=== PATIENT | male | born 1995 | race Hispanic/Latino ===

== ENCOUNTER 2019-03-16 20:33 | Emergency (ER) | payer SELFPAY ==
[2019-03-16 21:35] LABS: Absolute Lymphocytes (CBC) 1.6 K/uL (0.7-4.9); Absolute Monocytes 0.5 K/uL (0.1-1.3); Absolute Neutrophil 5.8 K/uL (1.8-8.0); Basophils % 0.5 % (0-1.3); Eosinophils % 0.9 % (0-4.4); Hematocrit 44.3 % (39.6-49.0); Lymphocytes % 19.5 % (15.3-44.8); MPV 11.7 fL (7.6-11.3); Monocytes % 6.6 % (3.3-12.3); RBC Red Blood Cell Count 5.22 M/uL (4.33-5.43)
[2019-03-16 22:01] LABS: Magnesium 2.2 mg/dL (1.8-2.4); Potassium 3.7 mmol/L (3.5-5.1); Thyroid Stimulating Hormone 0.874 uIU/mL (0.360-3.740)
--- NOTE | 2019-03-16 23:12 | ER ---
Nurse's Notes [facility] Name: Faraz Garay Age: 23 yrs Sex: Male : 1995 Arrival Date: 03/16/2019 Time: 20:34 Bed 25 Private MD: Yecenia Muñoz C Diagnosis: Malaise and fatigue Presentation: 03/16 20:59 Presenting complaint: Patient states: he was seen yesterday by Trent Muñoz given ak1 trazadone dx depression and GERD. pt c/o generalized weakness. pt with steady gait from ER lobby to ER25. pt stated he had a BM this morning but prior has had constipation X2 days. Transition of care: patient was not received from another setting of care. Onset of symptoms is unknown. Risk Assessment: Do you want to hurt yourself or someone else? Patient reports no desire to harm self or others. Initial Sepsis Screen: Does the patient meet any 2 criteria? No. Patient's initial sepsis screen is negative. Does the patient have a suspected source of infection? No. Patient's initial sepsis screen is negative. Care prior to arrival: None. 20:59 Method Of Arrival: Ambulatory ak1 20:59 Acuity: KOMAL 3 ak1 Historical: - Allergies: 21:03 No Known Allergies; ak1 - Home Meds: 21:03 trazodone 50 mg Oral tab 1 tab at bedtime [Active]; omeprazole Oral [Active]; ak1 - PMHx: 21:03 Anxiety; Depression; GERD; ak1 - PSHx: 21:03 Ankle surgery; ak1 - Immunization history:: Adult Immunizations up to date. - Social history:: Smoking status: Patient/guardian denies using tobacco, pt stated he stopped smoking yesterday. . - Ebola Screening: : No symptoms or risks identified at this time. Screenin:23 Abuse screen: Denies threats or abuse. Denies injuries from another. Nutritional mg2 screening: No deficits noted. Tuberculosis screening: No symptoms or risk factors identified. Fall Risk None identified. Assessment: 21:21 General: Appears in no apparent distress. comfortable, Behavior is calm, cooperative. mg2 Pain: Denies pain. Neuro: Level of Consciousness is awake, alert, obeys commands, Oriented to person, place, time, situation. Neuro: Reports weakness in whole body. Cardiovascular: Capillary refill < 3 seconds Patient's skin is warm and dry. Respiratory: Airway is patent Respiratory effort is even, unlabored, Respiratory pattern is regular, symmetrical. GI: Bowel sounds present X 4 quads. Abd is soft and non tender. : No signs and/or symptoms were reported regarding the genitourinary system. EENT: No signs and/or symptoms were reported regarding the EENT system. Derm: Skin is intact, is healthy with good turgor, Skin is pink, warm \T\ dry. normal. Musculoskeletal: Circulation, motion, and sensation intact. Capillary refill < 3 seconds. Musculoskeletal: Reports weakness in whole body. 23:30 Reassessment: Patient appears in no apparent distress at this time. Patient and/or mg2 family updated on plan of care and expected duration. Pain level reassessed. Patient is alert, oriented x 3, equal unlabored respirations, skin warm/dry/pink. Vital Signs: 20:59 BP 141 / 80; Pulse 77; Resp 16; Temp 98.1; Pulse Ox 99% on R/A; Weight 106.59 kg (R); ak1 Height 5 ft. 10 in. (177.80 cm) (R); Pain 0/10; 22:28 BP 108 / 63; Pulse 71; Resp 18; Temp 98; Pulse Ox 98% on R/A; Pain 0/10; mg2 23:37 BP 110 / 80; Pulse 70; Resp 18; Temp 98; Pulse Ox 100% on R/A; Pain 0/10; mg2 20:59 Body Mass Index 33.72 (106.59 kg, 177.80 cm) ak1 ED Course: 20:34 Patient arrived in ED. am2 20:34 Yecenia Muñoz FNP is Private Physician. am2 20:57 Niraj Jaimes, HEAVEN is Primary Nurse. mg2 20:59 Jose Burris PA is PHCP. jr8 20:59 Bernard Dunbar MD is Attending Physician. jr8 20:59 Arm band placed on Patient placed in an exam room, on a stretcher, on pulse oximetry, ak1 Patient notified of wait time. 21:01 Triage completed. ak1 21:23 Patient has correct armband on for positive identification. Door closed. Warm blanket mg2 given. 21:23 No provider procedures requiring assistance completed. mg2 21:33 Inserted saline lock: 20 gauge in left antecubital area, using aseptic technique. Blood mg2 collected. 23:34 IV discontinued, intact, bleeding controlled, No redness/swelling at site. Pressure mg2 dressing applied. Administered Medications: No medications were administered Outcome: 23:12 Discharge ordered by MD. hanley 23:38 Discharged to home ambulatory, with family. mg2 23:38 Condition: stable 23:38 Discharge instructions given to patient, family, Instructed on discharge instructions, follow up and referral plans. Demonstrated understanding of instructions, follow-up care. 23:38 Patient left the ED. mg2 Signatures: Jose Burris PA PA jr8 Audra Chua, RN RN ak1 Kriss Villalobos am2 Niraj Jaimes, RN RN mg2 Corrections: (The following items were deleted from the chart) 21:04 20:59 Presenting complaint: Patient states: he was seen yesterday by Trent Muñoz given ak1 pranazole and trazadone dx depression and GERD. pt c/o generalized weakness. pt with steady gait from ER lobby to ER25. pt stated he had a BM this morning but prior has had constipation X2 days. ak1
--- NOTE | 2019-03-16 23:12 | EDPHYS ---
Physician Documentation [facility] Name: Faraz Garay Age: 23 yrs Sex: Male : 1995 Arrival Date: 03/16/2019 Time: 20:34 Bed 25 Private MD: Yecenia Muñoz C ED Physician Bernard Dunbar HPI: 03/16 21:46 This 23 yrs old Male presents to ER via Ambulatory with complaints of General jr8 Weakness. 21:46 Patient stated that he was recently seen and put on Protonix for epigastric pain which jr8 is doing much better. Came to ED today for general weakness/fatigue. Denies any other symptoms . Severity of symptoms: At their worst the symptoms were moderate in the emergency department the symptoms are unchanged. The patient has not experienced similar symptoms in the past. The patient has been recently seen by a physician: with different complaint(s). Historical: - Allergies: 21:03 No Known Allergies; ak1 - Home Meds: 21:03 trazodone 50 mg Oral tab 1 tab at bedtime [Active]; omeprazole Oral [Active]; ak1 - PMHx: 21:03 Anxiety; Depression; GERD; ak1 - PSHx: 21:03 Ankle surgery; ak1 - Immunization history:: Adult Immunizations up to date. - Social history:: Smoking status: Patient/guardian denies using tobacco, pt stated he stopped smoking yesterday. . - Ebola Screening: : No symptoms or risks identified at this time. ROS: 21:46 Eyes: Negative for injury, pain, redness, and discharge, ENT: Negative for injury, jr8 pain, and discharge, Neck: Negative for injury, pain, and swelling, Cardiovascular: Negative for chest pain, palpitations, and edema, Respiratory: Negative for shortness of breath, cough, wheezing, and pleuritic chest pain, Abdomen/GI: Negative for abdominal pain, nausea, vomiting, diarrhea, and constipation, Back: Negative for injury and pain, MS/Extremity: Negative for injury and deformity, Skin: Negative for injury, rash, and discoloration, Neuro: Negative for headache, weakness, numbness, tingling, and seizure. 21:46 Constitutional: Positive for fatigue, malaise. Exam: 21:46 Constitutional: This is a well developed, well nourished patient who is awake, alert, jr8 and in no acute distress. Head/Face: Normocephalic, atraumatic. Eyes: Pupils equal round and reactive to light, extra-ocular motions intact. Lids and lashes normal. Conjunctiva and sclera are non-icteric and not injected. Cornea within normal limits. Periorbital areas with no swelling, redness, or edema. ENT: Nares patent. No nasal discharge, no septal abnormalities noted. Tympanic membranes are normal and external auditory canals are clear. Oropharynx with no redness, swelling, or masses, exudates, or evidence of obstruction, uvula midline. Mucous membranes moist. Neck: Trachea midline, no thyromegaly or masses palpated, and no cervical lymphadenopathy. Supple, full range of motion without nuchal rigidity, or vertebral point tenderness. No Meningismus. Cardiovascular: Regular rate and rhythm with a normal S1 and S2. No gallops, murmurs, or rubs. Normal PMI, no JVD. No pulse deficits. Respiratory: Lungs have equal breath sounds bilaterally, clear to auscultation and percussion. No rales, rhonchi or wheezes noted. No increased work of breathing, no retractions or nasal flaring. Abdomen/GI: Soft, non-tender, with normal bowel sounds. No distension or tympany. No guarding or rebound. No evidence of tenderness throughout. Back: No spinal tenderness. No costovertebral tenderness. Full range of motion. Skin: Warm, dry with normal turgor. Normal color with no rashes, no lesions, and no evidence of cellulitis. MS/ Extremity: Pulses equal, no cyanosis. Neurovascular intact. Full, normal range of motion. Neuro: Awake and alert, GCS 15, oriented to person, place, time, and situation. Cranial nerves II-XII grossly intact. Motor strength 5/5 in all extremities. Sensory grossly intact. Cerebellar exam normal. Normal gait. Vital Signs: 20:59 BP 141 / 80; Pulse 77; Resp 16; Temp 98.1; Pulse Ox 99% on R/A; Weight 106.59 kg (R); ak1 Height 5 ft. 10 in. (177.80 cm) (R); Pain 0/10; 22:28 BP 108 / 63; Pulse 71; Resp 18; Temp 98; Pulse Ox 98% on R/A; Pain 0/10; mg2 23:37 BP 110 / 80; Pulse 70; Resp 18; Temp 98; Pulse Ox 100% on R/A; Pain 0/10; mg2 20:59 Body Mass Index 33.72 (106.59 kg, 177.80 cm) ak1 MDM: 21:03 Patient medically screened. [facility] 23:11 Data reviewed: vital signs, nurses notes, lab test result(s), and as a result, I will jr8 discharge patient. Data interpreted: Pulse oximetry: on room air is 98 %. Interpretation: normal. Counseling: I had a detailed discussion with the patient and/or guardian regarding: the historical points, exam findings, and any diagnostic results supporting the discharge/admit diagnosis, lab results, the need for outpatient follow up, a family practitioner, to return to the emergency department if symptoms worsen or persist or if there are any questions or concerns that arise at home. 03/16 21:22 Order name: CBC with Diff; Complete Time: 21:39 [email or web address] 03/16 21: Order name: Basic Metabolic Panel; Complete Time: 22:03 8 03/16 21: Order name: TSH; Complete Time: 22:03 jr8 03/16 21: Order name: IV; Complete Time: 21:33 jr8 03/16 21: Order name: Magnesium; Complete Time: 22:03 [facility] [[email or web address] Administered Medications: No medications were administered Disposition: 03/17 06:41 Co-signature as Attending Physician, Bernard Dunbar MD I agree with the assessment and [facility] plan of care. Disposition: 03/16/19 23:12 Discharged to Home. Impression: Malaise and fatigue. - Condition is Stable. - Discharge Instructions: Fatigue. - Medication Reconciliation Form, Thank You Letter, Antibiotic Education, Prescription Opioid Use form. - Follow up: Private Physician; When: 2 - 3 days; Reason: Recheck today's complaints, Continuance of care, Re-evaluation by your physician. - Problem is new. - Symptoms have improved. Signatures: Dispatcher [employer] Bernard Duarte MD MD cha Roszak, Josh, PA PA jr8 Adura Chua RN RN ak1 Niraj Jaimes RN RN mg2 Corrections: (The following items were deleted from the chart) 03/16 23:38 23:12 03/16/2019 23:12 Discharged to Home. Impression: Malaise and fatigue. Condition mg2 is Stable. Forms are Medication Reconciliation Form, Thank You Letter, Antibiotic Education, Prescription Opioid Use. Follow up: Private Physician; When: 2 - 3 days; Reason: Recheck today's complaints, Continuance of care, Re-evaluation by your physician. Problem is new. Symptoms have improved. jr8
== END 2019-03-16 23:38 | disposition home or self-care (01) ==
LOC: ER 20:33
DX: R53.81 Other malaise (principal); R53.83 Other fatigue; K21.9 Gastro-esophageal reflux disease without esophagitis; F41.8 Other specified anxiety disorders
CPT/HCPCS: 36415; 80048; 83735; 84443; 85025; 99284

== ENCOUNTER 2019-09-12 23:32 | Emergency (ER) | payer SELFPAY ==
[2019-09-12] MEDS ORDERED: MAGNE/ALUM HYDROXD 30 ML UCUP ONE (23:53)
[2019-09-12] MEDS ORDERED: LIDOCAINE VISCOUS 2% SOLN 15 ML UDC ONE (23:54)
--- NOTE | 2019-09-13 00:28 | ER ---
Nurse's Notes [facility] Name: Faraz Garay Age: 24 yrs Sex: Male : 1995 Arrival Date: 09/12/2019 Time: 23:36 Bed 16 Private MD: Diagnosis: Gastro-esophageal reflux disease;Chest pain, unspecified;Anxiety disorder, unspecified Presentation: 09/12 23:44 Presenting complaint: Patient states: burning sensation in chest that began this ss morning after eating. Pt states, "I don't think it's anything, but because of my anxiety, I need to get it checked out.". Transition of care: patient was not received from another setting of care. Onset of symptoms was September 12, 2019. Risk Assessment: Do you want to hurt yourself or someone else? Patient reports no desire to harm self or others. Initial Sepsis Screen: Does the patient meet any 2 criteria? No. Patient's initial sepsis screen is negative. Does the patient have a suspected source of infection? No. Patient's initial sepsis screen is negative. Care prior to arrival: None. 23:44 Method Of Arrival: Ambulatory ss 23:44 Acuity: KOMAL 3 ss Triage Assessment: 09/13 00:03 General: Appears. ch2 Historical: - Allergies: 09/12 23:46 No Known Allergies; ss - PMHx: 23:46 Anxiety; Depression; GERD; ss - PSHx: 23:46 Ankle surgery; ss - Immunization history:: Adult Immunizations up to date. - Social history:: Smoking status: Patient uses tobacco products, smokes one-half pack cigarettes per day. - Ebola Screening: : Patient denies exposure to infectious person Patient denies travel to an Ebola-affected area in the 21 days before illness onset. - Family history:: not pertinent. - Hospitalizations: : No recent hospitalization is reported. Screenin/18 00:02 Abuse screen: Denies threats or abuse. Denies injuries from another. Nutritional ch2 screening: No deficits noted. Tuberculosis screening: No symptoms or risk factors identified. Fall Risk None identified. Assessment: 00:04 General: Appears in no apparent distress. uncomfortable, Behavior is calm, cooperative, ch2 appropriate for age. Pain: Complains of pain in epigastric area Pain radiates to chest Pain currently is 5 out of 10 on a pain scale. Quality of pain is described as burning, Pain began 3 hours ago. Is. Neuro: Level of Consciousness is awake, alert, obeys commands, Oriented to person, place, time, situation, Appropriate for age. Cardiovascular: Reports chest pain, Capillary refill < 3 seconds Rhythm is regular Chest pain. Respiratory: Respiratory effort is even, unlabored. Respiratory: Airway is patent Respiratory effort is Respiratory pattern is regular, symmetrical. GI: Reports epigastric pain. : No deficits noted. Reports. EENT: EENT: Eyes Sclera/Cornea are clear in inner aspect of conjuctiva of right eye and inner aspect of conjunctiva of left eye. Derm: Skin is pink, warm \\T\\ dry. normal. Musculoskeletal: Circulation, motion, and sensation intact. Vital Signs: 09/12 23:43 BP 131 / 68; Pulse 69; Resp 16; Pulse Ox 100% on R/A; Weight 104.33 kg; Height 5 ft. 9 ss in. (175.26 cm); Pain 4/10; 09/13 00:13 BP 128 / 74; Pulse 63; Temp 98.3; Pulse Ox 100% ; ch2 09/12 23:43 Body Mass Index 33.96 (104.33 kg, 175.26 cm) ss ED Course: 09/12 23:36 Patient arrived in ED. ds1 23:39 Jagdish Mehta MD is Attending Physician. rn 23:43 Arm band placed on right wrist. ss 23:45 Triage completed. 09/13 00:15 Bed in low position. Call light in reach. Adult w/ patient. interrelated special education teacher on. Pulse ch2 ox on. NIBP on. 00:15 Patient maintains SpO2 saturation greater than 95% on room air. ch2 00:39 No provider procedures requiring assistance completed. Patient did not have IV access ch2 during this emergency room visit. 06:15 XRAY Chest (1 view) In Process Unspecified. EDMS Administered Medications: 00:01 Drug: GI Cocktail without - (Maalox Suspension 30 ml, Lidocaine Liquid 2 % 15 ch2 ml) Route: PO; 00:39 Follow up: Response: No adverse reaction; Marked relief of symptoms; Pain is decreased ch2 Outcome: 00:27 Discharge ordered by MD. rn 00:40 Discharged to home ambulatory, with family. ch2 00:40 Condition: stable 00:40 Discharge instructions given to patient, family, Instructed on discharge instructions, follow up and referral plans. 00:43 Patient left the ED. ch2 Signatures: Dispatcher [employer] EDMS SinghSamantha goodman ds1 Jagdish Mehta MD MD rn Smirch, Shelby, RN RN Silvana Grey RN RN ch2
--- NOTE | 2019-09-13 00:29 | EDPHYS ---
Physician Documentation [facility] Name: Faraz Garay Age: 24 yrs Sex: Male : 1995 Arrival Date: 09/12/2019 Time: 23:36 Bed 16 Private MD: ED Physician Jagdish Mehta HPI: 09/12 23:50 This 24 yrs old Male presents to ER via Ambulatory with complaints of Anxiety, rn Chest Pain. 23:50 The patient or guardian reports chest pain that is located primarily in the substernal rn area. The pain does not radiate. Associated signs and symptoms: Pertinent negatives: abdominal pain, cough, diaphoresis, dizziness, headache, lightheadedness, nausea, near syncope, palpitations, recent travel, shortness of breath, syncope, vomiting. The chest pain is described as burning. Duration: The patient or guardian reports a single episode, that is still ongoing. Modifying factors: The symptoms are alleviated by nothing. the symptoms are aggravated by eating, laying down. Severity of pain: At its worst the pain was mild in the emergency department the pain has improved. The patient has experienced similar episodes in the past. Reports ate, went to lay down, then felt burning sensation in chest, has GERD and takes meds, but also has bad anxiety that makes him worry and got worked up enough to come and get checked out. Feels better now but wanted to be safe. No trauma/fever/cough/hemoptysis. No famhx of early cardiac problems or . . Historical: - Allergies: 23:46 No Known Allergies; ss - PMHx: 23:46 Anxiety; Depression; GERD; ss - PSHx: 23:46 Ankle surgery; ss - Immunization history:: Adult Immunizations up to date. - Social history:: Smoking status: Patient uses tobacco products, smokes one-half pack cigarettes per day. - Ebola Screening: : Patient denies exposure to infectious person Patient denies travel to an Ebola-affected area in the 21 days before illness onset. - Family history:: not pertinent. - Hospitalizations: : No recent hospitalization is reported. ROS: 23:50 Constitutional: Negative for fever, chills, and weight loss, Eyes: Negative for injury, rn pain, redness, and discharge, ENT: Negative for injury, pain, and discharge, Neck: Negative for injury, pain, and swelling, Cardiovascular: Negative for palpitations, and edema, Respiratory: Negative for shortness of breath, cough, wheezing, and pleuritic chest pain, Abdomen/GI: Negative for abdominal pain, nausea, vomiting, diarrhea, and constipation, MS/Extremity: Negative for injury and deformity, Skin: Negative for injury, rash, and discoloration, Neuro: Negative for headache, weakness, numbness, tingling, and seizure. Exam: 23:49 ECG was reviewed by the Attending Physician. rn 23:50 Constitutional: This is a well developed, well nourished patient who is awake, alert, rn seems anxious Head/Face: Normocephalic, atraumatic. Eyes: Pupils equal round and reactive to light, extra-ocular motions intact. Lids and lashes normal. Conjunctiva and sclera are non-icteric and not injected. Cornea within normal limits. Periorbital areas with no swelling, redness, or edema. ENT: MMM Cardiovascular: Regular rate and rhythm. No pulse deficits. Respiratory: Lungs have equal breath sounds bilaterally, clear to auscultation. No increased work of breathing, no retractions or nasal flaring. Abdomen/GI: soft, non-tender Skin: Warm, dry with normal turgor. Normal color with no rashes, no lesions, and no evidence of cellulitis. MS/ Extremity: Pulses equal, no cyanosis. Neurovascular intact. Full, normal range of motion. Equal circumference. Neuro: Awake and alert, GCS 15, oriented to person, place, time, and situation. Cranial nerves II-XII grossly intact. Motor strength 5/5 in all extremities. Sensory grossly intact. Vital Signs: 23:43 BP 131 / 68; Pulse 69; Resp 16; Pulse Ox 100% on R/A; Weight 104.33 kg; Height 5 ft. 9 ss in. (175.26 cm); Pain 4/10; 09/13 00:13 BP 128 / 74; Pulse 63; Temp 98.3; Pulse Ox 100% ; ch2 09/12 23:43 Body Mass Index 33.96 (104.33 kg, 175.26 cm) ss MDM: 09/12 23:39 Patient medically screened. rn 09/13 00:25 Differential diagnosis: anxiety, esophagitis, gastritis, gastroesophageal reflux rn disease (GERD), pericarditis, pleurisy, pneumonia, pneumothorax. Data reviewed: vital signs, nurses notes, EKG, radiologic studies, and as a result, I will discharge patient. Test interpretation: by ED physician or midlevel provider: ECG, plain radiologic studies, CXR neg for acute finding/pneumothorax/pneumonia. Counseling: I had a detailed discussion with the patient and/or guardian regarding: the historical points, exam findings, and any diagnostic results supporting the discharge/admit diagnosis, radiology results, the need for outpatient follow up, to return to the emergency department if symptoms worsen or persist or if there are any questions or concerns that arise at home. Response to treatment: the patient's symptoms have mildly improved after treatment, and as a result, I will discharge patient. Special discussion: I discussed with the patient/guardian in detail that at this point there is no indication for admission to the hospital. It is understood, however, that if the symptoms persist or worsen the patient needs to return immediately for re-evaluation. ED course: recommend continuation of antacid medication, and addition of maalox or tums when gets worse, and diet modification. ECG without ischemia, CXR normal, will dc home.. 09/12 23:48 Order name: XRAY Chest (1 view) rn 09/12 23:48 Order name: EKG; Complete Time: 23:48 rn 09/12 23:48 Order name: EKG - Nurse/Tech; Complete Time: 23:53 rn EC/17 23:49 Rate is 60 beats/min. Rhythm is regular. QRS [place] is Normal. [place] interval is normal. QRS rn interval is normal. QT interval is normal. No Q waves. T waves are Normal. T waves are Inverted in lead III. No ST changes noted. Clinical impression: NSR w/ Non-specific ST/T Changes. Interpreted by me. Reviewed by me. Administered Medications: 09/13 00:01 Drug: GI Cocktail without - (Maalox Suspension 30 ml, Lidocaine Liquid 2 % 15 ch2 ml) Route: PO; 00:39 Follow up: Response: No adverse reaction; Marked relief of symptoms; Pain is decreased ch2 Disposition: 09/13/19 00:27 Discharged to Home. Impression: Gastro-esophageal reflux disease, Chest pain, unspecified, Anxiety disorder, unspecified. - Condition is Stable. - Discharge Instructions: Panic Attacks, Nonspecific Chest Pain, Gastroesophageal Reflux Disease, Adult. - Medication Reconciliation Form, Thank You Letter, Antibiotic Education, Prescription Opioid Use form. - Follow up: Private Physician; When: As needed; Reason: Recheck today's complaints, Re-evaluation by your physician. - Problem is new. - Symptoms have improved. Signatures: Dispatcher [employer] EDMS Jagdish Mehta MD MD rn Smirch, Shelby, RN RN ss Silvana Grey RN RN ch2 Corrections: (The following items were deleted from the chart) 00:43 00:27 09/13/2019 00:27 Discharged to Home. Impression: Gastro-esophageal reflux ch2 disease; Chest pain, unspecified; Anxiety disorder, unspecified. Condition is Stable. Forms are Medication Reconciliation Form, Thank You Letter, Antibiotic Education, Prescription Opioid Use. Follow up: Private Physician; When: As needed; Reason: Recheck today's complaints, Re-evaluation by your physician. Problem is new. Symptoms have improved. rn
[2019-09-13 01:32] VITALS: O2SAT 100
[2019-09-13 01:33] VITALS: BP 128/74; TEMP 98.3
--- NOTE | 2019-09-13 07:04 | EKG ---
Test Date: 2019-09-12 Test Time: 23:46:12 Low Pressure Boiler Tender: ASHA MEASUREMENT RESULTS: Intervals: Rate: 60 IA: 168 QRSD: 84 QT: 388 QTc: 388 [place]: P: 37 IA: 168 QRS: 15 T: 7 INTERPRETIVE STATEMENTS: Normal sinus rhythm Nonspecific ST and T wave abnormality Abnormal ECG No previous ECG available for comparison Electronically Signed On 09-13-19 07:04:15 WIND TUNNEL TECHNICIAN by Frank Keyes
--- NOTE | 2019-09-13 09:25 | RAD REPORT ---
EXAM DESCRIPTION: RAD - Chest Single View - 09/13/2019 6:16 am CLINICAL HISTORY: Burning chest pain COMPARISON: None. TECHNIQUE: AP portable chest image was obtained 2355 hours . FINDINGS: Lungs are underinflated. No focal lung parenchymal process. Heart and vasculature are norm al. No measurable pleural effusion and no pneumothorax. No acute bony abnormality seen. No acute aort ic findings suspected. IMPRESSION: No acute cardiopulmonary process.
== END 2019-09-13 00:43 | disposition home or self-care (01) ==
LOC: ER 23:32
DX: K21.9 Gastro-esophageal reflux disease without esophagitis (principal); F41.9 Anxiety disorder, unspecified; F17.210 Nicotine dependence, cigarettes, uncomplicated
CPT/HCPCS: 71045; 93005; 99284

== ENCOUNTER 2020-12-15 23:08 | Emergency (ER) | payer OTHER, SELFPAY ==
[2020-12-16 00:49] LABS: Absolute Lymphocytes (CBC) 2.1 K/uL (0.7-4.9); Basophils % 0.7 % (0-1.3); Hematocrit 46.6 % (39.6-49.0); Lymphocytes % 26.8 % (15.3-44.8); MPV 12.4 fL (7.6-11.3); RBC Red Blood Cell Count 5.42 M/uL (4.33-5.43)
[2020-12-16 00:50] LABS: Protime INR 0.97
[2020-12-16 00:56] LABS: Urine Blood TRACE (NEG); Urine Glucose NEGATIVE (NEG); Urine Protein NEGATIVE (NEG); Urine Specific Gravity >1.030 (1.005-1.030); Urine pH 5.5 (5.0-7.0)
[2020-12-16 00:57] LABS: Barbiturates NEGATIVE (NEGATIVE); Benzodiazepines NEGATIVE (NEGATIVE); Cocaine NEGATIVE (NEGATIVE); METHAMPHETAM NEGATIVE (NEGATIVE); Methadone NEGATIVE (NEGATIVE); Opiates NEGATIVE (NEGATIVE); Phencyclidine NEGATIVE (NEGATIVE); THC Cannibis NEGATIVE (NEGATIVE)
[2020-12-16] MEDS ORDERED: NA CHLORIDE 0.9% 1,000 ML ONE (00:57)
[2020-12-16 01:15] LABS: ALT/SGPT 60 U/L (12-78); AST/SGOT 25 U/L (15-37); Alkaline Phosphatase 130 U/L (45-117); BUN Blood Urea Nitrogen 19 mg/dL (7-18); Bicarbonate 26 mmol/L (21-32); Bilirubin Direct 0.2 mg/dL (0-0.2); Bilirubin Total 0.5 mg/dL (0.2-1.0); Glucose Level 108 mg/dL (74-106); Magnesium 2.3 mg/dL (1.8-2.4); NT PRO-BNP 14 pg/mL (<125); Potassium 3.8 mmol/L (3.5-5.1); Sodium Level 142 mmol/L (136-145); Troponin (Emerg Dept Use Only) < 0.02 ng/mL (0.0-0.045)
--- NOTE | 2020-12-16 01:52 | ER ---
Nurse's Notes [facility] Name: Faraz Garay Age: 25 yrs Sex: Male : 1995 Arrival Date: 12/15/2020 Time: 23:17 Bed 4 Private MD: Diagnosis: Anxiety disorder, unspecified;Malaise and fatigue Presentation: 12/15 23:23 Chief complaint: Patient states: I woke up sweating and felt like I couldn't breathe jb4 and felt like I was going to faint. I do not know if it was my anxiety acting up or not, I just wanted to get checked. Coronavirus screen: Client denies travel out of the [place] in the last 14 days. At this time, the client does not indicate any symptoms associated with coronavirus-19. Ebola Screen: No symptoms or risks identified at this time. Initial Sepsis Screen: Does the patient meet any 2 criteria? No. Patient's initial sepsis screen is negative. Does the patient have a suspected source of infection? No. Patient's initial sepsis screen is negative. Risk Assessment: Do you want to hurt yourself or someone else? Patient reports no desire to harm self or others. Onset of symptoms was December 15, 2020. Transition of care: patient was not received from another setting of care. 23:23 Method Of Arrival: Ambulatory jb4 23:23 Acuity: KOMAL 3 jb4 Historical: - Allergies: 23:26 No Known Allergies; jb4 - Home Meds: 23:26 None [Active]; jb4 - PMHx: 23:26 Anxiety; Depression; GERD; jb4 - PSHx: 23:26 R ankle; jb4 - Immunization history:: Adult Immunizations up to date. - Social history:: Smoking status: Patient reports the use of cigarette tobacco products, 1pack every two to three days. Screenin:56 Abuse screen: Denies threats or abuse. Denies injuries from another. Nutritional mg2 screening: No deficits noted. Tuberculosis screening: No symptoms or risk factors identified. Fall Risk None identified. Assessment: 23:56 General: Appears in no apparent distress. comfortable, Behavior is calm, cooperative. mg2 Pain: Denies pain. Neuro: Level of Consciousness is awake, alert, obeys commands, Oriented to person, place, time, situation. Cardiovascular: Capillary refill < 3 seconds Patient's skin is warm and dry. Respiratory: Airway is patent Respiratory effort is even, unlabored, Respiratory pattern is regular, symmetrical. GI: No signs and/or symptoms were reported involving the gastrointestinal system. : No signs and/or symptoms were reported regarding the genitourinary system. EENT: No signs and/or symptoms were reported regarding the EENT system. Derm: Skin is intact, is healthy with good turgor. Musculoskeletal: Circulation, motion, and sensation intact. Capillary refill < 3 seconds. 12/16 01:00 Reassessment: Patient appears in no apparent distress at this time. Patient is alert, rr5 oriented x 3, equal unlabored respirations, skin warm/dry/pink. awaiting for results. 02:08 Reassessment: Patient appears in no apparent distress at this time. Patient is alert, rr5 oriented x 3, equal unlabored respirations, skin warm/dry/pink. discharge instruction given and explained without complaints made Patient states feeling better. Patient states symptoms have improved. Vital Signs: 12/15 23:23 BP 139 / 73; Pulse 71; Resp 18; Temp 98.3(O); Pulse Ox 100% on R/A; Weight 102.06 kg jb4 (R); Height 5 ft. 10 in. (177.80 cm) (R); Pain 0/10; 12/16 01:00 BP 126 / 89; Pulse 79; Resp 16; Pulse Ox 98% ; rr5 02:09 BP 125 / 70; Pulse 70; Resp 16; Pulse Ox 99% ; rr5 12/15 23:23 Body Mass Index 32.28 (102.06 kg, 177.80 cm) jb4 ED Course: 12/15 23:17 Patient arrived in ED. cf2 23:25 Triage completed. jb4 23:27 Arm band placed on right wrist. jb4 23:53 Jose Quispe RN is Primary Nurse. rr5 23:56 Patient has correct armband on for positive identification. mg2 23:56 No provider procedures requiring assistance completed. Patient did not have IV access mg2 during this emergency room visit. 12/16 00:06 Jonah Xiao MD is Attending Physician. mh7 00:20 Inserted saline lock: 20 gauge in left antecubital area, using aseptic technique. Blood rr5 collected. 00:38 XRAY Chest (1 view) In Process Unspecified. EDMS 01:51 Miky Smith MD is Referral Physician. mh7 01:51 Khai Carlos MD is Referral Physician. 7 02:09 IV discontinued, intact, bleeding controlled, No redness/swelling at site. Pressure rr5 dressing applied. Administered Medications: 00:36 Drug: NS 0.9% 1000 ml Route: IV; Rate: 1000 ml; Site: left antecubital; mg2 01:30 Follow up: Response: No adverse reaction; IV Status: Completed infusion; IV Intake: rr5 1000ml Intake: 01:30 IV: 1000ml; Total: 1000ml. rr5 Outcome: 01:52 Discharge ordered by . [facility] 02:10 Patient left the ED. rr5 Signatures: Dispatcher [employer] EDJc Singh RN RN jb4 Niraj Jaimes RN RN mg2 Jose Quispe RN RN rr5 Osorio Gomes 2 Jonah Xiao MD MD [facility]
--- NOTE | 2020-12-16 01:53 | EDPHYS ---
[facility] Name: Faraz Garay Age: 25 yrs Sex: Male : 1995 Arrival Date: 12/15/2020 Time: 23:17 Bed 4 Private MD: ED Physician Jonah Xiao HPI: 12/16 00:23 This 25 yrs old Male presents to ER via Ambulatory with complaints of mh7 Weakness, Sweating, Breathing Difficulty. 00:24 The patient has shortness of breath. mh7 00:24 The patient presents to the emergency department with anxiety, over unknown mh7 circumstances. Onset: The symptoms/episode began/occurred today. Past psychiatric history: Prior diagnosis: Anxiety, Psychiatric medications include: none, Primary psychiatric physician: the patient does not have a primary psychiatric physician, the patient has not had a prior suicide gesture, the patient does not have a previous inpatient psychiatric history, the patient's last psychiatric treatment was none. Associated signs and symptoms: Pertinent positives; anxiety, shortness of breath, sweaty, lightheaded, Pertinent negatives: abdominal pain, chest pain, chills, delusions, depression, fever, hallucinations, headache, homicidal ideation, nausea, palpitations, paranoia, substance abuse, suicide ideation, tremor, vomiting. Severity of symptoms: At their worst the symptoms were moderate today, in the emergency department the symptoms have improved markedly. The patient has experienced similar episodes in the past, several times. Historical: - Allergies: 12/15 23:26 No Known Allergies; jb4 - Home Meds: 23:26 None [Active]; jb4 - PMHx: 23:26 Anxiety; Depression; GERD; jb4 - PSHx: 23:26 R ankle; jb4 - Immunization history:: Adult Immunizations up to date. - Social history:: Smoking status: Patient reports the use of cigarette tobacco products, 1pack every two to three days. ROS: 12/16 00:24 Constitutional: Negative for fever, chills, and weight loss, Eyes: Negative for injury, mh7 pain, redness, and discharge, ENT: Negative for injury, pain, and discharge, Neck: Negative for injury, pain, and swelling, Cardiovascular: Negative for chest pain, palpitations, and edema, Abdomen/GI: Negative for abdominal pain, nausea, vomiting, diarrhea, and constipation, Back: Negative for injury and pain, : Negative for injury, bleeding, discharge, and swelling, MS/Extremity: Negative for injury and deformity, Skin: Negative for injury, rash, and discoloration, Neuro: Negative for headache, weakness, numbness, tingling, and seizure, Allergy/Immunology: Negative for hives, rash, and allergies, Endocrine: Negative for neck swelling, polydipsia, polyuria, polyphagia, and marked weight changes, Hematologic/Lymphatic: Negative for swollen nodes, abnormal bleeding, and unusual bruising. Exam: 00:24 Head/Face: Normocephalic, atraumatic. Eyes: Pupils equal round and reactive to light, mh7 extra-ocular motions intact. Lids and lashes normal. Conjunctiva and sclera are non-icteric and not injected. Cornea within normal limits. Periorbital areas with no swelling, redness, or edema. ENT: Nares patent. No nasal discharge, no septal abnormalities noted. Tympanic membranes are normal and external auditory canals are clear. Oropharynx with no redness, swelling, or masses, exudates, or evidence of obstruction, uvula midline. Mucous membranes moist. Neck: Trachea midline, no thyromegaly or masses palpated, and no cervical lymphadenopathy. Supple, full range of motion without nuchal rigidity, or vertebral point tenderness. No Meningismus. Chest/axilla: Normal chest wall appearance and motion. Nontender with no deformity. No lesions are appreciated. Cardiovascular: Regular rate and rhythm with a normal S1 and S2. No gallops, murmurs, or rubs. Normal PMI, no JVD. No pulse deficits. Respiratory: Lungs have equal breath sounds bilaterally, clear to auscultation and percussion. No rales, rhonchi or wheezes noted. No increased work of breathing, no retractions or nasal flaring. Abdomen/GI: Soft, non-tender, with normal bowel sounds. No distension or tympany. No guarding or rebound. No evidence of tenderness throughout. Back: No spinal tenderness. No costovertebral tenderness. Full range of motion. Skin: Warm, dry with normal turgor. Normal color with no rashes, no lesions, and no evidence of cellulitis. MS/ Extremity: Pulses equal, no cyanosis. Neurovascular intact. Full, normal range of motion. Neuro: Awake and alert, GCS 15, oriented to person, place, time, and situation. Cranial nerves II-XII grossly intact. Motor strength 5/5 in all extremities. Sensory grossly intact. Cerebellar exam normal. Normal gait. 00:24 Constitutional: The patient appears in no acute distress, alert, awake, anxious. 00:24 Psych: Behavior/mood is pleasant, cooperative, anxious, Affect is calm, Oriented to person, place, time, Patient has no thoughts/intents to harm self or others. Judgement / Insight is normal. Memory is normal. Delusions/hallucinations are not present. Vital Signs: 12/15 23:23 BP 139 / 73; Pulse 71; Resp 18; Temp 98.3(O); Pulse Ox 100% on R/A; Weight 102.06 kg jb4 (R); Height 5 ft. 10 in. (177.80 cm) (R); Pain 0/10; 12/16 01:00 BP 126 / 89; Pulse 79; Resp 16; Pulse Ox 98% ; rr5 02:09 BP 125 / 70; Pulse 70; Resp 16; Pulse Ox 99% ; rr5 12/15 23:23 Body Mass Index 32.28 (102.06 kg, 177.80 cm) jb4 MDM: 01:47 Differential diagnosis: drug withdrawal. depression, Anxiety, Substance Abuse. Data [facility] reviewed: vital signs, nurses notes, old medical records, lab test result(s), cardiac enzymes, CBC, electrolytes, urinalysis, urine drug screen, EKG, radiologic studies, plain films. Data interpreted: Pulse oximetry: on room air is 100 %. Interpretation: normal. Counseling: I had a detailed discussion with the patient and/or guardian regarding: the historical points, exam findings, and any diagnostic results supporting the discharge/admit diagnosis, the presence of at least one elevated blood pressure reading (>120/80) during this emergency department visit, lab results, radiology results, the need for outpatient follow up, an fine patcher, a psychiatrist, to return to the emergency department if symptoms worsen or persist or if there are any questions or concerns that arise at home. Response to treatment: the patient's symptoms have resolved after treatment, the patient's blood pressure is in an acceptable range, mental status has returned to baseline, the patient no longer shows bradycardia, the patient is not short of breath, the patient is not tachycardic, the patient's pain is gone, the patient's temperature has normalized. 01:52 Patient medically screened. 12/16 00:20 Order name: Basic Metabolic Panel 12/16 00:20 Order name: CBC with Diff 12/16 00:20 Order name: LFT's 12/16 00:20 Order name: Magnesium; Complete Time: 01:30 7 12/16 00:20 Order name: NT PRO-BNP; Complete Time: 01:30 12/16 00:20 Order name: PT-INR; Complete Time: 01:30 12/16 00:20 Order name: Troponin (emerg Dept Use Only); Complete Time: :30 12/16 00:20 Order name: XRAY Chest (1 view) 12/16 00:20 Order name: UDS; Complete Time: 01:30 12/16 00:21 Order name: Basic Metabolic Panel; Complete Time: 01:30 EDMS 12/16 00:21 Order name: CBC with Automated Diff; Complete Time: 01:30 EDMS 12/16 00:21 Order name: Liver (Hepatic) Function; Complete Time: 01:30 EDMS 12/16 00:49 Order name: Urine Dipstick--Ancillary (enter results); Complete Time: 01:30 3 12/16 00:20 Order name: EKG; Complete Time: 00:22 7 12/16 00:20 Order name: Cardiac monitoring; Complete Time: 00:35 7 12/16 00:20 Order name: EKG - Nurse/Tech; Complete Time: 00:26 12/16 00:20 Order name: IV Saline Lock; Complete Time: 00:35 12/16 00:20 Order name: Labs collected and sent; Complete Time: 00:35 12/16 00:20 Order name: O2 Per Protocol; Complete Time: 00:36 12/16 00:20 Order name: O2 Sat Monitoring; Complete Time: 00:36 12/16 00:20 Order name: Urine Dipstick-Ancillary (obtain specimen); Complete Time: 00:44 mh7 Administered Medications: 00:36 Drug: NS 0.9% 1000 ml Route: IV; Rate: 1000 ml; Site: left antecubital; mg2 01:30 Follow up: Response: No adverse reaction; IV Status: Completed infusion; IV Intake: rr5 1000ml Disposition: 12/16/20 01:52 Discharged to Home. Impression: Anxiety disorder, unspecified, Malaise and fatigue. - Condition is Stable. - Discharge Instructions: Generalized Anxiety Disorder. - Medication Reconciliation Form, Thank You Letter, Antibiotic Education, Prescription Opioid Use form. - Follow up: Private Physician; When: 1 - 2 days; Reason: Worsening of condition, Recheck today's complaints, Continuance of care, Re-evaluation by your physician. Follow up: Miky Smith MD; When: 1 - 2 days; Reason: Worsening of condition, Recheck today's complaints, Continuance of care. Follow up: Khai Carlos MD; When: 1 - 2 days; Reason: Worsening of condition, Recheck today's complaints, Continuance of care. - Problem is an acute exacerbation. - Symptoms have improved. Signatures: Dispatcher [employer] EDIA Jc Hackett RN RN jb4 Niraj Jaimes RN RN mg2 Jose Quispe RN RN rr5 Jonah Xiao MD MD 7 Corrections: (The following items were deleted from the chart) 02:10 01:52 12/16/2020 01:52 Discharged to Home. Impression: Anxiety disorder, unspecified; rr5 Malaise and fatigue. Condition is Stable. Forms are Medication Reconciliation Form, Thank You Letter, Antibiotic Education, Prescription Opioid Use. Follow up: Private Physician; When: 1 - 2 days; Reason: Worsening of condition, Recheck today's complaints, Continuance of care, Re-evaluation by your physician. Follow up: Miky Smith; When: 1 - 2 days; Reason: Worsening of condition, Recheck today's complaints, Continuance of care. Follow up: Khai Carlos; When: 1 - 2 days; Reason: Worsening of condition, Recheck today's complaints, Continuance of care. Problem is an acute exacerbation. Symptoms have improved. 7
[2020-12-16 02:17] VITALS: TEMP 98.3
[2020-12-16 02:19] VITALS: BP 125/70; O2SAT 99
--- NOTE | 2020-12-16 08:29 | RAD REPORT ---
EXAM DESCRIPTION: RAD - Chest Single View - 12/16/2020 12:39 am CLINICAL HISTORY: SOB COMPARISON: Portable August 2019 TECHNIQUE: AP portable chest image was obtained 12/16/2020 12:39 am . FINDINGS: Lungs are clear. Heart and vasculature are normal. No measurable pleural effusion and no p neumothorax. No acute bony abnormality seen. No acute aortic findings suspected. IMPRESSION: No acute cardiopulmonary process. No significant change from comparison study.
== END 2020-12-16 02:10 | disposition home or self-care (01) ==
LOC: ER 23:08
DX: F41.8 Other specified anxiety disorders (principal); R53.81 Other malaise; R53.83 Other fatigue; F17.210 Nicotine dependence, cigarettes, uncomplicated
CPT/HCPCS: 85025; 80048; 36415; 83735; 85610; 80076; 80307 ×8; 81003; 84484; 83880; 71045; 96360; 99284; J7030

== ENCOUNTER 2021-11-19 06:47 | Emergency (ER) | payer OTHER ==
[2021-11-19 07:42] LABS: Absolute Lymphocytes (CBC) 1.3 K/uL (0.7-4.9); Hematocrit 46.5 % (39.6-49.0); Lymphocytes % 20.2 % (15.3-44.8); RBC Red Blood Cell Count 5.45 M/uL (4.33-5.43)
[2021-11-19 07:47] LABS: Protime INR 1.05
[2021-11-19 08:03] LABS: ALT/SGPT 46 U/L (12-78); AST/SGOT 16 U/L (15-37); Albumin 3.9 g/dL (3.4-5.0); Alkaline Phosphatase 116 U/L (45-117); BUN Blood Urea Nitrogen 22 mg/dL (7-18); Bicarbonate 24 mmol/L (21-32); Bilirubin Direct 0.3 mg/dL (0-0.2); Bilirubin Total 1.1 mg/dL (0.2-1.0); Glucose Level 98 mg/dL (74-106); Magnesium 2.2 mg/dL (1.8-2.4); NT PRO-BNP 13 pg/mL (<125); Potassium 3.6 mmol/L (3.5-5.1); Sodium Level 139 mmol/L (136-145)
--- NOTE | 2021-11-19 08:03 | RAD REPORT ---
EXAM DESCRIPTION: CT - Head Brain Wo Cont - 11/19/2021 7:40 am CLINICAL HISTORY: syncope, dizziness COMPARISON: No comparisons TECHNIQUE: All CT scans are performed using dose optimization technique as appropriate and may inclu de automated exposure control or mA/KV adjustment according to patient size. FINDINGS: No intracranial hemorrhage, hydrocephalus or extra-axial fluid collection.No areas of brai n edema or evidence of midline shift. The paranasal sinuses and mastoids are clear. The calvarium is intact. IMPRESSION: No acute intracranial abnormality.
[2021-11-19] MEDS ORDERED: NA CHLORIDE 0.9% 1,000 ML ONE (08:08)
--- NOTE | 2021-11-19 08:17 | RAD REPORT ---
EXAM DESCRIPTION: RAD - Chest Single View - 11/19/2021 8:06 am CLINICAL HISTORY: syncope COMPARISON: Chest Single View dated 12/16/2020; Chest Single View dated 09/12/2019 FINDINGS: Lines: None. Lungs: No evidence of edema or pneumonia. Pleural: No significant pleural effusions or pneumothorax. Cardiac: The heart size is within normal limits. Bones: No acute fractures. Other: IMPRESSION: No acute cardiopulmonary disease.
--- NOTE | 2021-11-19 09:00 | ER ---
Nurse's Notes [facility] Name: Faraz Garay Age: 26 yrs Sex: Male : 1995 Arrival Date: 11/19/2021 Time: 06:50 Bed 18 Private MD: Diagnosis: Dizziness and giddiness Presentation: 11/19 07:03 Chief complaint: Patient states: "I was feeling very dizzy on the way to work and jd3 almost passed out. I turned around and went home and it almost happened again. I have been feeling dizzy recently, but today has been the worst with some chest pressure now.". Coronavirus screen: At this time, the client does not indicate any symptoms associated with coronavirus-19. Ebola Screen: Patient negative for fever greater than or equal to 101.5 degrees Fahrenheit, and additional compatible Ebola Virus Disease symptoms. Initial Sepsis Screen: Does the patient meet any 2 criteria? No. Patient's initial sepsis screen is negative. Does the patient have a suspected source of infection? No. Patient's initial sepsis screen is negative. Risk Assessment: Do you want to hurt yourself or someone else? Patient reports no desire to harm self or others. Onset of symptoms was November 19, 2021. 07:03 Method Of Arrival: Wheelchair jd3 07:03 Acuity: KOMAL 3 jd3 Triage Assessment: 09:33 General: Appears in no apparent distress. Behavior is calm, cooperative. ll1 Historical: - Allergies: 07:04 No Known Allergies; jd3 - PMHx: 07:04 Anxiety; Depression; GERD; jd3 - PSHx: 07:04 right ankle; jd3 - Immunization history:: Adult Immunizations up to date, Client reports receiving the 2nd dose of the Covid vaccine. - Social history:: Smoking status: Patient reports the use of cigarette tobacco products, denies chronic smoking, but will smoke occasionally. Screenin:30 Abuse screen: Denies threats or abuse. Nutritional screening: No deficits noted. ll1 Tuberculosis screening: No symptoms or risk factors identified. Fall Risk Total Menon Fall Scale indicates No Risk (0-24 pts). Assessment: 07:40 General: Appears in no apparent distress. Behavior is calm, cooperative, appropriate ll1 for age. Pain: Denies pain. Neuro: Level of Consciousness is awake, alert, obeys commands, Oriented to person, place, time, situation, Appropriate for age Gsa Coordinator are equal bilaterally Moves all extremities. Full function Gait is steady, Speech is normal, Facial symmetry appears normal, Reports dizziness, a syncopal episode. Cardiovascular: No deficits noted. Respiratory: No deficits noted. 08:40 Reassessment: No changes from previously documented assessment. Patient and/or family ll1 updated on plan of care and expected duration. Pain level reassessed. Patient is alert, oriented x 3, equal unlabored respirations, skin warm/dry/pink. 09:10 Reassessment: No changes from previously documented assessment. Patient and/or family ll1 updated on plan of care and expected duration. Pain level reassessed. Patient is alert, oriented x 3, equal unlabored respirations, skin warm/dry/pink. Patient states feeling better. Patient states symptoms have improved. Vital Signs: 07:05 BP 127 / 76; Pulse 83; Resp 18 S; Temp 97.5(TE); Pulse Ox 99% on R/A; Weight 97.52 kg jd3 (R); Height 5 ft. 10 in. (177.80 cm) (R); Pain 8/10; 09:00 BP 123 / 74; Pulse 60; Resp 16; Pulse Ox 100% on R/A; Pain 0/10; ll1 07:05 Body Mass Index 30.85 (97.52 kg, 177.80 cm) j ED Course: 06:50 Patient arrived in ED. ja2 07:04 Triage completed. jd3 07:05 Arm band placed on. jd3 07:08 Brissa Otero, HEAVEN is Primary Nurse. lg3 07:12 Errol Rubio PA is PHCP. jmm 07:12 Jagdish Mehta MD is Attending Physician. jmm 07:30 Patient has correct armband on for positive identification. Bed in low position. Call ll1 light in reach. Side rails up X 1. Pulse ox on. NIBP on. 07:37 Inserted saline lock: 20 gauge in right forearm, using aseptic technique. mb7 07:40 CT Head Brain wo Cont In Process Unspecified. EDMS 07:52 EKG done, by ED staff, reviewed by Errol FITZPATRICK. mb7 08:06 XRAY Chest (1 view) In Process Unspecified. EDMS 08:59 aSmuel Winkler MD is Referral Physician. [facility] 08:59 Parrish James MD is Referral Physician. [facility] 08:59 Reema Chau MD is Referral Physician. [facility] 09:14 No provider procedures requiring assistance completed. IV discontinued, intact, ll1 bleeding controlled, No redness/swelling at site. Pressure dressing applied. Administered Medications: 08:15 Drug: NS 0.9% 1000 ml Route: IV; Rate: 1 bolus; Site: right antecubital; ll1 09:10 Follow up: Response: No adverse reaction; IV Status: Completed infusion; IV Intake: ll1 1000ml Intake: 09:10 IV: 1000ml; Total: 1000ml. ll1 Outcome: 09:00 Discharge ordered by . [facility] 09:14 Patient left the ED. 1 09:14 Discharged to home ambulatory. 1 09:14 Condition: stable 09:14 Discharge instructions given to patient, family, Instructed on discharge instructions, follow up and referral plans. medication usage, Demonstrated understanding of instructions, follow-up care, medications, Prescriptions given X 1. Signatures: Dispatcher [employer] EDNJ Errol Rubio PA PA [facility] Rafael Buchanan RN RN Brissa Driscoll RN RN lg3 Lizette Wiggins RN RN ll1 Laura Ochoa Mary mb7
--- NOTE | 2021-11-19 09:01 | EDPHYS ---
Physician Documentation [facility] Name: Faraz Garay Age: 26 yrs Sex: Male : 1995 Arrival Date: 11/19/2021 Time: 06:50 Bed 18 Private MD: ED Physician Jagdish Mehta HPI: 11/19 07:20 This 26 yrs old Male presents to ER via Wheelchair with complaints of jmm Dizziness. 07:20 The patient presents with dizziness, sense of spinning. Onset: The symptoms/episode jmm began/occurred acutely, this morning. Modifying factors: The symptoms are alleviated by nothing, the symptoms are aggravated by movement of head, standing up, changing position. Associated signs and symptoms: Pertinent negatives: vomiting. This is a 26 year old male with a history of anxiety, depression that presents to the ED with complaints of acute onset dizziness, he describes as the room spinning. States having multiple episodes over the past 3 weeks. Patient states he feels like he almost has passed out multiple times. . Historical: - Allergies: 07:04 No Known Allergies; jd3 - PMHx: 07:04 Anxiety; Depression; GERD; jd3 - PSHx: 07:04 right ankle; jd3 - Immunization history:: Adult Immunizations up to date, Client reports receiving the 2nd dose of the Covid vaccine. - Social history:: Smoking status: Patient reports the use of cigarette tobacco products, denies chronic smoking, but will smoke occasionally. ROS: 07:20 Constitutional: Negative for fever, chills, and weight loss, Cardiovascular: Negative jmm for chest pain, palpitations, and edema, Respiratory: Negative for shortness of breath, cough, wheezing, and pleuritic chest pain, Abdomen/GI: Negative for abdominal pain, nausea, vomiting, diarrhea, and constipation. 07:20 Constitutional: Positive for 07:20 Neuro: Positive for dizziness, near syncope. 07:20 All other systems are negative. Exam: 07:20 Constitutional: This is a well developed, well nourished patient who is awake, alert, jmm and in no acute distress. Head/Face: atraumatic. 07:20 ENT: Moist Mucus Membranes Neck: Trachea midline, Supple Chest/axilla: Normal chest wall appearance and motion. Cardiovascular: Regular rate and rhythm. No edema appreciated Respiratory: Normal respirations, no respiratory distress appreciated Abdomen/GI: Non distended, soft Back: Normal ROM Skin: General appearance color normal 07:20 Eyes: Nystagmus: nystagmus with fast component noted, bilaterally. 07:20 Musculoskeletal/extremity: ROM: intact in all extremities. 07:20 Skin: Appearance: Color: normal in color. 07:20 Neuro: Motor: is normal. 07:20 Psych: Behavior/mood is pleasant, cooperative. Vital Signs: 07:05 BP 127 / 76; Pulse 83; Resp 18 S; Temp 97.5(TE); Pulse Ox 99% on R/A; Weight 97.52 kg jd3 (R); Height 5 ft. 10 in. (177.80 cm) (R); Pain 8/10; 09:00 BP 123 / 74; Pulse 60; Resp 16; Pulse Ox 100% on R/A; Pain 0/10; ll1 07:05 Body Mass Index 30.85 (97.52 kg, 177.80 cm) jd3 MDM: 07:20 Patient medically screened. naye 08:58 Data reviewed: vital signs, nurses notes. Counseling: I had a detailed discussion with naye the patient and/or guardian regarding: the historical points, exam findings, and any diagnostic results supporting the discharge/admit diagnosis, lab results, radiology results, the need for outpatient follow up, to return to the emergency department if symptoms worsen or persist or if there are any questions or concerns that arise at home. ED course: Patient is alert and non toxic in appearance in the ED. I do not suspect CVA, AMI, infection. Patient advised to follow up with ent and cardiology for further evaluation. Patient understood and agrees with the plan of care. . 11/19 07:20 Order name: Basic Metabolic Panel; Complete Time: 08:13 [facility] 11/19 07:20 Order name: CBC with Diff; Complete Time: 07:53 [facility] 11/19 07:20 Order name: LFT's; Complete Time: 08:13 [facility] 11/19 07:20 Order name: Magnesium; Complete Time: 08: [facility] 11/19 07:20 Order name: NT PRO-BNP; Complete Time: 08:13 [facility] 11/19 07:20 Order name: PT-INR; Complete Time: 07:53 [facility] 11/19 07:20 Order name: Troponin HS; Complete Time: 08:13 11/19 07:20 Order name: XRAY Chest (1 view); Complete Time: 08:23 [facility] 11/19 07:20 Order name: EKG; Complete Time: 07:21 11/19 07:20 Order name: Cardiac monitoring; Complete Time: 07:27 11/19 07:20 Order name: EKG - Nurse/Tech; Complete Time: 07:27 [facility] 11/19 07:24 Order name: CT Head Brain wo Cont; Complete Time: 08:13 [facility] 11/19 07:53 Order name: D-Dimer; Complete Time: 08:23 11/19 07:20 Order name: IV Saline Lock; Complete Time: 07:33 [facility] 11/19 07:20 Order name: Labs collected and sent; Complete Time: :11/19 07:20 Order name: O2 Per Protocol; Complete Time: 07:24 11/19 07:20 Order name: O2 Sat Monitoring; Complete Time: 07:24 [facility] Administered Medications: 08:15 Drug: NS 0.9% 1000 ml Route: IV; Rate: 1 bolus; Site: right antecubital; ll1 09:10 Follow up: Response: No adverse reaction; IV Status: Completed infusion; IV Intake: ll1 1000ml Disposition Summary: 11/19/21 09:00 Discharge Ordered Location: Home [facility] Condition: Stable [facility] Diagnosis - Dizziness and giddiness [facility] Followup: [facility] - With: Samuel Winkler MD - When: 2 - 3 days - Reason: Recheck today's complaints, Continuance of care, Re-evaluation by your physician Followup: [facility] - With: Parrish James MD - When: 2 - 3 days - Reason: Recheck today's complaints, Continuance of care, Re-evaluation by your physician Followup: [facility] - With: Reema Chau MD - When: 2 - 3 days - Reason: Recheck today's complaints, Continuance of care, Re-evaluation by your physician Discharge Instructions: - Discharge Summary Sheet [facility] - Dizziness jmm - Vertigo jmm - Near-Syncope, [id number] [facility] Forms: - Medication Reconciliation Form [facility] - Thank You Letter [facility] - Antibiotic Education [facility] - Prescription Opioid Use [facility] Prescriptions: - Meclizine 25 mg Oral Tablet - take 1 tablet by ORAL route every 8 hours As needed; 30 tablet; Refills: 0, [facility] Product Selection Permitted Addendum: 11/20/2021 19:02 Co-signature as Attending Physician, Jagdish Mehta MD I agree with the assessment and r n plan of care. Attestation: The patient's history, exam findings, diagnostics, and a summary of any interventions or procedures was reviewed in detail with Errol FITZPATRICK. Signatures: Dispatcher [employer] EDTX Errol Rubio PA PA jmm Nieto, Roman, MD MD rn Davies, Rafael RN RN jd3 Lizette Wiggins RN RN ll1
[2021-11-19 18:44] VITALS: BP 127/76; TEMP 97.5; O2SAT 99
--- NOTE | 2021-11-20 08:26 | EKG ---
Test Date: 2021-11-19 Test Time: 07:48:22 [employer]: HANSEL MEASUREMENT RESULTS: Intervals: Rate: 69 KS: 156 QRSD: 100 QT: 378 QTc: 405 Lee: P: 42 KS: 156 QRS: 35 T: 14 INTERPRETIVE STATEMENTS: Normal sinus rhythm Nonspecific ST and T wave abnormality Abnormal ECG Compared to ECG 12/16/2020 00:22:50 ST (T wave) deviation now present Myocardial infarct finding no longer present Electronically Signed On 11-20-21 08:22:41 [employer]ERS ASSISTANT by Marcellus Figueredo
== END 2021-11-19 09:14 | disposition home or self-care (01) ==
LOC: ER 06:47
DX: R42 Dizziness and giddiness (principal); R55 Syncope and collapse; F17.210 Nicotine dependence, cigarettes, uncomplicated
CPT/HCPCS: 93005; 85025; 80048; 36415; 83735; 85610; 85379; 80076; 84484; 83880; 70450; 71045; 96360; 99284; J7030

== ENCOUNTER 2022-09-25 23:29 | Emergency (ER) | payer OTHER ==
[2022-09-26 01:22] LABS: SARS-COV-2 RT PCR NEGATIVE (NEGATIVE)
--- NOTE | 2022-09-26 01:27 | ER ---
Nurse's Notes [facility] Name: Faraz Garay Age: 27 yrs Sex: Male : 1995 Arrival Date: 09/25/2022 Time: 23:33 Bed 16 Private MD: Diagnosis: Acute pharyngitis, unspecified;Acute bronchitis, unspecified;Influenza due to identified novel influenza A virus Presentation: 09/25 23:40 Chief complaint: Patient states: I started getting a cough on Friday and i went to the kd3 doctor and they sent me home with montelukast, amox-clav and bromphen. they said that i have bronchitis. but since then i just feel like its getting worse and i feel like my throat is swollen and sore. Coronavirus screen: Vaccine status: Patient reports receiving the 2nd dose of the covid vaccine. moderna. Ebola Screen: No symptoms or risks identified at this time. Initial Sepsis Screen: Does the patient meet any 2 criteria? No. Patient's initial sepsis screen is negative. Does the patient have a suspected source of infection? No. Patient's initial sepsis screen is negative. Risk Assessment: Do you want to hurt yourself or someone else? Patient reports no desire to harm self or others. Onset of symptoms was September 25, 2022. 23:40 Method Of Arrival: Ambulatory 3 23:40 Acuity: KOMAL 4 kd3 Triage Assessment: 23:43 General: Appears in no apparent distress. Behavior is calm, cooperative. Pain: kd3 Complains of pain in neck. Neuro: Level of Consciousness is awake, alert, obeys commands, Oriented to person, place. Cardiovascular: Patient's skin is warm and dry. Respiratory: Airway is patent Trachea midline Respiratory effort is even, unlabored, Respiratory pattern is regular, symmetrical. Historical: - PMHx: 23:43 Anxiety; Depression; GERD; kd3 - PSHx: 23:43 Right Ankle; kd3 - Immunization history:: Adult Immunizations up to date. - Social history:: Smoking status: unknown. Screenin:46 Abuse screen: Denies threats or abuse. Nutritional screening: No deficits noted. jj7 Tuberculosis screening: No symptoms or risk factors identified. Fall Risk None identified. Assessment: 23:46 General: Appears in no apparent distress. uncomfortable, Behavior is calm, cooperative, jj7 appropriate for age. Respiratory: Reports cough that is non-productive, hacking. EENT: Reports SORE THROAT. 09/26 00:00 Pain: Complains of pain in Patient C/O sinus pressure pain of 1 with sore throat. pf1 00:00 Neuro: No deficits noted. Cardiovascular: No deficits noted. Respiratory: Reports cough pf1 that is productive, since Friday with clear to green productive cough Airway is patent Breath sounds are clear bilaterally. GI: No deficits noted. : No deficits noted. EENT: Reports pain in Patient C/O sore throat of 1 with redness and nasal drainage of clear to green discharge,onset Friday. Derm: No deficits noted. Musculoskeletal: No deficits noted. Vital Signs: 09/25 23:40 BP 130 / 63; Pulse 97; Resp 19; Temp 98.2(O); Pulse Ox 100% on R/A; Weight 95.25 kg; kd3 Height 5 ft. 9 in. (175.26 cm); 09/26 00:54 BP 104 / 57; Pulse 80; Resp 20; Temp 98(O); Pulse Ox 98% ; Pain 1/10; pf1 01:30 BP 125 / 70; Pulse 80; Resp 18; Temp 98.1; Pulse Ox 99% on R/A; Pain 1/10; pf1 09/25 23:40 Body Mass Index 31.01 (95.25 kg, 175.26 cm) kd3 ED Course: 09/25 23:33 Patient arrived in ED. bp1 23:39 [facility]C [facility] snw 23:39 Bernard Dunbar MD is Attending Physician. snw 23:43 Triage completed. kd3 23:43 Arm band placed on right wrist. kd3 23:46 Patient has correct armband on for positive identification. Bed in low position. Call jj7 light in reach. Adult w/ patient. 23:46 No provider procedures requiring assistance completed. jj7 23:55 Desi gonzalez, RN is Primary Nurse. pf1 09/26 00:08 COVID-19/FLU A+B Sent. pf1 00:49 COVID-19/FLU A+B Sent. pf1 01:40 Patient did not have IV access during this emergency room visit. pf1 Administered Medications: 01:25 Drug: Tussionex Pennkinetic ER (chlorpheniramine-hydrocodone) Suspension 5 ml Route: PO;jj7 01:50 Follow up: Response: No adverse reaction; Marked relief of symptoms pf1 Medication: 09/25 23:46 VIS not applicable for this client. jj7 Outcome: 09/26 01:27 Discharge ordered by . snsuman 01:40 Discharged to home ambulatory, with family. pf1 01:40 Condition: stable pf1 01:40 Discharge instructions given to patient, Instructed on discharge instructions, follow up and referral plans. medication usage, Demonstrated understanding of instructions, follow-up care, medications, Prescriptions given X 3. 02:37 Patient left the ED. pf1 Signatures: Amla Bates, DEPUTY SHERIFF-C DEPUTY SHERIFF-Csnw Annalisa Marsh Kyli RN RN kd3 Rey Johnson RN RN jj7 Desi gonzalez RN RN pf1
--- NOTE | 2022-09-26 01:27 | EDPHYS ---
Physician Documentation [facility] Name: Faraz Garay Age: 27 yrs Sex: Male : 1995 Arrival Date: 09/25/2022 Time: 23:33 Bed 16 Private MD: ALFREDO Physician Bernard Dunbar HPI: 09/26 00:08 This 27 yrs old Male presents to ER via Ambulatory with complaints of Cough. snw 00:08 The patient or guardian reports cough, that is intermittent, very sore throat. Onset: snw The symptoms/episode began/occurred suddenly, 3 day(s) ago, and became worse and became persistent. Severity of symptoms: At their worst the symptoms were moderate. Associated signs and symptoms: Pertinent positives: cough. It is unknown whether or not the patient has had similar symptoms in the past. The patient has been recently seen by a physician:. pt was recently seen at a clinic and given three shots (?), taking Augmentin, Singulair, and Bromfed DM. Pt states he is not feeling better.. Historical: - PMHx: 09/25 23:43 Anxiety; Depression; GERD; kd3 - PSHx: 23:43 Right Ankle; kd3 - Immunization history:: Adult Immunizations up to date. - Social history:: Smoking status: unknown. ROS: 09/26 00:08 Eyes: Negative for injury, pain, redness, and discharge, Neck: Negative for injury, snw pain, and swelling, Cardiovascular: Negative for chest pain, palpitations, and edema, Respiratory: Negative for shortness of breath, cough, wheezing, and pleuritic chest pain, Abdomen/GI: Negative for abdominal pain, nausea, vomiting, diarrhea, and constipation, Back: Negative for injury and pain, : Negative for injury, bleeding, discharge, and swelling, MS/Extremity: Negative for injury and deformity, Skin: Negative for injury, rash, and discoloration, Neuro: Negative for headache, weakness, numbness, tingling, and seizure. Constitutional: Positive for body aches, chills, fatigue, fever, malaise, poor PO intake. ENT: Positive for sore throat. Exam: 00:07 Constitutional: This is a well developed, well nourished patient who is awake, alert, snw and in no acute distress. Head/Face: Normocephalic, atraumatic. Eyes: Pupils equal round and reactive to light, extra-ocular motions intact. Lids and lashes normal. Conjunctiva and sclera are non-icteric and not injected. Cornea within normal limits. Periorbital areas with no swelling, redness, or edema. Neck: Trachea midline, no thyromegaly or masses palpated, and no cervical lymphadenopathy. Supple, full range of motion without nuchal rigidity, or vertebral point tenderness. No Meningismus. Chest/axilla: Normal chest wall appearance and motion. Nontender with no deformity. No lesions are appreciated. Cardiovascular: Regular rate and rhythm with a normal S1 and S2. No gallops, murmurs, or rubs. Normal PMI, no JVD. No pulse deficits. Respiratory: Lungs have equal breath sounds bilaterally, clear to auscultation and percussion. No rales, rhonchi or wheezes noted. No increased work of breathing, no retractions or nasal flaring. Abdomen/GI: Soft, non-tender, with normal bowel sounds. No distension or tympany. No guarding or rebound. No evidence of tenderness throughout. Back: No spinal tenderness. No costovertebral tenderness. Full range of motion. Skin: Warm, dry with normal turgor. Normal color with no rashes, no lesions, and no evidence of cellulitis. MS/ Extremity: Pulses equal, no cyanosis. Neurovascular intact. Full, normal range of motion. 00:07 ENT: External ear(s): are unremarkable, Ear canal(s): are normal, TM's: erythema, that is moderate, bilaterally, Nose: is normal, Mouth: is normal, Posterior pharynx: erythema, that is moderate, Voice: is normal. Vital Signs: 09/25 23:40 BP 130 / 63; Pulse 97; Resp 19; Temp 98.2(O); Pulse Ox 100% on R/A; Weight 95.25 kg; kd3 Height 5 ft. 9 in. (175.26 cm); 09/26 00:54 BP 104 / 57; Pulse 80; Resp 20; Temp 98(O); Pulse Ox 98% ; Pain 1/10; pf1 01:30 BP 125 / 70; Pulse 80; Resp 18; Temp 98.1; Pulse Ox 99% on R/A; Pain /10; pf1 09/25 23:40 Body Mass Index 31.01 (95.25 kg, 175.26 cm) kd3 MDM: 09/25 23:43 Patient medically screened. snw 09/26 01:27 Data reviewed: vital signs, nurses notes. Data interpreted: Pulse oximetry: on room air snw is 98 %. Interpretation: normal. Counseling: I had a detailed discussion with the patient and/or guardian regarding: the historical points, exam findings, and any diagnostic results supporting the discharge/admit diagnosis, lab results, the need for outpatient follow up, to return to the emergency department if symptoms worsen or persist or if there are any questions or concerns that arise at home. Special discussion: Based on the history and exam findings, there is no indication for further emergent testing or inpatient evaluation. I discussed with the patient/guardian the need to see the primary care provider for further evaluation of the symptoms. 09/26 00:01 Order name: COVID-19/FLU A+B; Complete Time: 01:26 snw Administered Medications: 01:25 Drug: Tussionex Pennkinetic ER (chlorpheniramine-hydrocodone) Suspension 5 ml Route: PO;jj7 01:50 Follow up: Response: No adverse reaction; Marked relief of symptoms pf1 Disposition Summary: 09/26/22 01:27 Discharge Ordered Location: Home snw Condition: Stable snw Diagnosis - Acute pharyngitis, unspecified snw - Acute bronchitis, unspecified snw - Influenza due to identified novel influenza A virus snw Followup: snw - With: Emergency Department - When: As needed - Reason: Worsening of condition Followup: snw - With: Private Physician - When: 2 - 3 days - Reason: Recheck today's complaints, Continuance of care, Re-evaluation by your physician Discharge Instructions: - Discharge Summary Sheet snw - Acute Bronchitis, Adult snw - Pharyngitis snw - Sore Throat snw - Rehydration, Adult snw - Influenza, Adult, [id number] wm Forms: - Work release form snw - Medication Reconciliation Form snw - Thank You Letter snw - Antibiotic Education snw - Prescription Opioid Use snw Prescriptions: - Zyrtec 10 mg Oral Tablet - take 1 tablet by ORAL route once daily As needed; 20 tablet; Refills: 0, snw Product Selection Permitted - Prednisone 20 mg Oral Tablet - take 2 tablets by ORAL route once daily for 5 days; 10 tablet; Refills: 0, snw Product Selection Permitted - Pepcid 20 mg Oral Tablet - take 1 tablet by ORAL route once daily; 20 tablet; Refills: 0, Product snw Selection Permitted Addendum: 09/29/2022 07:53 Co-signature as Attending Physician, Bernard Dunbar MD I agree with the assessment and c ojeda plan of care. Signatures: Dispatcher [employer] EDNM Bernard Dunbar MD MD cha Waters, Shelly, NURSING EDUCATOR-C NURSING EDUCATOR-Csnw Berta Auguste RN RN kd3 Rey Johnson RN RN jj7 Desi gonzalez RN pf1
[2022-09-26] MEDS ORDERED: HYDROCODONE/CHLORPHEN 5 ML/OSYR ONE (01:28)
[2022-09-26 02:46] VITALS: BP 125/70; TEMP 98.1; O2SAT 99
== END 2022-09-26 02:37 | disposition home or self-care (01) ==
LOC: ER 23:29
DX: J10.1 Influenza due to other identified influenza virus with other respiratory manifestations (principal); J20.9 Acute bronchitis, unspecified; Z20.822 Contact with and (suspected) exposure to COVID-19
CPT/HCPCS: 0240U; 99283